=== PATIENT | male | born 1955 | race Caucasian/White ===

== ENCOUNTER 2017-05-14 10:01 | Emergency (ER) | payer BC ==
[~2017-05-14] VITALS: Ht 172.7 cm; Wt 79.4 kg
[2017-05-14] MEDS ORDERED: ONDANSETRON 4 MG/2 ML VIAL IV ONE (10:45)
[2017-05-14] MEDS ORDERED: BENZONATATE 100 MG CAPSULE PO ONE (10:45)
[2017-05-14] MEDS ORDERED: IBUPROFEN 200 MG TABLET PO ONE (10:45)
[2017-05-14] MEDS ORDERED: IV NORMAL SALINE 1000 ML BAG IV ONE ×2 (10:45→12:00)
--- NOTE | 2017-05-14 10:46 | NUR ---
rapid streep and rapid influenza sent to lab.
[2017-05-14 11:06] LABS: BASOPHILS % (AUTO) 0.4 % (0.0-2.0); EOSINOPHILS # (AUTO) 0.2 K/uL (0.0-0.7); EOSINOPHILS % (AUTO) 2.6 % (0.0-7.0); LYMPHOCYTES # (AUTO) 0.4 K/uL (20.0-40.0); LYMPHOCYTES % (AUTO) 6.2 % (20.5-51.5); MEAN CORPUSCULAR HGB CONC 33 g/dL (32.5-36.3); MEAN CORPUSCULAR VOLUME 87.2 fL (73.0-96.2); MONOCYTES # (AUTO) 0.5 K/uL (2.0-10.0); MONOCYTES % (AUTO) 6.9 % (0.0-11.0); NEUTROPHILS # (AUTO) 5.7 K/uL (1.8-8.9); NEUTROPHILS % (AUTO) 83.9 % (38.5-71.5); PLATELET COUNT (AUTO) 145 K/uL (152-348); RED BLOOD CELL COUNT(AUTO) 3.78 MIL/uL (4.06-5.63); WHITE BLOOD COUNT (AUTO) 6.8 K/uL (3.6-10.2)
[2017-05-14] MEDS ORDERED: BENZONATATE 100 MG CAPSULE ONE (11:06)
[2017-05-14] MEDS ORDERED: ONDANSETRON 4 MG/2 ML VIAL ONE (11:06)
[2017-05-14] MEDS ORDERED: IBUPROFEN 200 MG TABLET ONE (11:06)
[2017-05-14 11:12] LABS: CREATININE 3.9 mg/dL (0.6-1.3); POTASSIUM 4.8 mmol/L (3.5-5.1)
--- NOTE | 2017-05-14 11:17 | NUR ---
iv placed/cxr/labs done, 1l 0.9ns bolus infusing.
[2017-05-14 11:30] LABS: BILIRUBIN,TOTAL 0.6 mg/dL (0.2-1.0)
[2017-05-14 11:31] LABS: BILIRUBIN,DIRECT 0.1 mg/dL (0.0-0.2); TOTAL PROTEIN, SERUM 7.2 g/dL (6.4-8.2)
--- NOTE | 2017-05-14 12:33 | NUR ---
mse completed,all md orders completed. pt had iv d/c'd intact, pt d/c'd home, aci/rx x3 given,pt got dressed and ambulated w/o diff, took all belongings.
[2017-05-14 12:39] VITALS: BP 145/75
== END 2017-05-14 12:34 | disposition home or self-care (01) ==
LOC: ER 10:01
DX: I12.9 Hypertensive chronic kidney disease with stage 1 through stage 4 chronic kidney disease, or unspecified chronic kidney disease (principal); N18.9 Chronic kidney disease, unspecified; J11.1 Influenza due to unidentified influenza virus with other respiratory manifestations; D64.9 Anemia, unspecified; Z86.73 Personal history of transient ischemic attack (TIA), and cerebral infarction without residual deficits
CPT/HCPCS: 36415; 71010; 83605; 85025; 86403; 87040; 87070; 87400; A4663; J2405; J7030